=== PATIENT | female | born 1990 | race African-American/Black ===

== ENCOUNTER 2022-10-01 20:48 | Emergency (ER) | payer BC ==
[2022-10-01 20:56] VITALS: BP 110/72; PULSE 82; RESP 18; TEMP 97.6
[2022-10-01 21:00] VITALS: BMI 36.8
[2022-10-01] MEDS ORDERED: DIPHTH,PERTUSS(ACELL),TET 0.5 ML DISP.SYRIN IM ONE ×2 (22:11→22:29)
[2022-10-01] MEDS ORDERED: ACETAMINOPHEN 325 MG TABLET (FP) PO ONE (22:11)
== END 2022-10-01 23:24 | disposition home or self-care (01) ==
LOC: JER 20:48
DX: S01.81XA Laceration without foreign body of other part of head, initial encounter (principal); W22.8XXA Striking against or struck by other objects, initial encounter
CPT/HCPCS: 99283-25